=== PATIENT | male | born 1975 | race Hispanic/Latino ===

== ENCOUNTER → 2018-04-29 | Outpatient (CLI) | payer OTHER, MEDICARE ==
[~2018-04-29] MED LIST: GADODIAMIDE 10 MMOL/20 ML ML IV ONE; HYDR-4064 PO; KETO75CA11 PO; TIZA4CAP8 PO; TRAM50TA4 PO
== END | disposition home or self-care (01) ==
LOC: RAH 08:31
PROVIDERS: ATTEND Family Medicine
DX: M47.26 Other spondylosis with radiculopathy, lumbar region (principal); M48.061 Spinal stenosis, lumbar region without neurogenic claudication
CPT/HCPCS: 72158; A9579

== ENCOUNTER 2019-03-24 06:57 | Day surgery (SDC) | payer OTHER, MEDICARE ==
[2019-03-23 16:44] VITALS: BP 127/74
[2019-03-23 16:59] LABS: BASOPHILS % (AUTO) 1.1 % (0.0-5.0); EOSINOPHILS % (AUTO) 6.8 % (0.0-8.0); HEMATOCRIT 39.3 % (42-54); LYMPHOCYTES % (AUTO) 30.6 % (21.0-51.0); MEAN CORPUSCULAR HEMOGLOBIN 28.6 pg (27.0-33.0); MEAN CORPUSCULAR HGB CONC 33.2 g/dL (32.0-36.0); MEAN CORPUSCULAR VOLUME 86.1 fL (79-99); MONOCYTES % (AUTO) 8.5 % (3.0-13.0); PLATELET COUNT (AUTO) 306 K/uL (130-400); RED BLOOD CELL COUNT(AUTO) 4.57 MIL/uL (4.50-6.20); WHITE BLOOD COUNT (AUTO) 9.6 K/uL (4.8-10.8)
[2019-03-23 17:07] LABS: CREATININE 0.9 mg/dL (0.5-1.5); POTASSIUM 4.5 mmol/L (3.5-5.1)
[2019-03-24] VITALS (16 sets, daily range): BP systolic 123–146; BP diastolic 76–95
[~2019-03-24] VITALS: Ht 165.1 cm; Wt 93.7 kg
[~2019-03-24 06:57] MED LIST changes: +CETI10TA57 PO; +DICL50TA9 PO; +FLUT16H NASAL; +GABA-531 PO; -GADODIAMIDE 10 MMOL/20 ML ML IV ONE; -KETO75CA11 PO; -TIZA4CAP8 PO; +TIZA4TAB5 PO
[2019-03-24] MEDS: CEFAZOLIN SODIUM 1 GM VIAL IVP SCH ×2 (07:30→09:00)
[2019-03-24] MEDS ORDERED: LACTATED RINGERS 1000ML 1,000 ML IV ONE (07:44)
--- NOTE | 2019-03-24 07:45 | NUR ---
POTENTIAL FOR INFECTION: SHAVED LEFT SHOULDER /LT UPPER ARM PER ANGIE ANGELES, FOLLOWED BY WIPING WITH WILVER: 2% CHLORHEXIDINE GLUCONATE CLOTH PATIENTS PRE-OP SKIN PREP.
[2019-03-24] MEDS ORDERED: EPINEPHRINE 1 MG/ML 30ML VIAL IJ ONE (08:06)
[2019-03-24] MEDS ORDERED: MIDAZOLAM HCL 1 MG/ML 2ML VIAL ONE (08:36)
[2019-03-24] MEDS ORDERED: ONDANSETRON HCL 4 MG/2 ML VIAL ONE (08:36)
[2019-03-24] MEDS ORDERED: DEXAMETHASONE SOD PHOSPHATE 10MG/ML 1ML VIAL ONE (08:36)
[2019-03-24] MEDS ORDERED: LIDOCAINE PF 2% 5ML ABBOJECT ONE (08:36)
[2019-03-24] MEDS ORDERED: PROPOFOL 10 MG/ML 20ML VIAL IV ONE ×2 (08:36→11:30)
[2019-03-24] MEDS ORDERED: FENTANYL CITRATE PF 50 MCG/1 ML 2ML VIAL ONE (08:37)
[2019-03-24] MEDS ORDERED: ROCURONIUM 10MG/1ML SYR 10 MG/ML ML ONE ×2 (08:40→10:57)
[2019-03-24] MEDS ORDERED: ROPIVACAINE 0.5% 5MG/ML 30ML IJ ONE (08:45)
[2019-03-24] MEDS ORDERED: EPHEDRINE SULFATE 50 MG/ML AMPULE ONE (11:13)
[2019-03-24] MEDS ORDERED: GLYCOPYRROLATE 1 MG/5 ML SYRINGE ONE (12:02)
[2019-03-24] MEDS ORDERED: NEOSTIGMINE 5MG/5ML SYR IV ONE (12:02)
[2019-03-24] MEDS ORDERED: CEPH500B PO (12:03)
== END 2019-03-24 13:35 | disposition home or self-care (01) ==
LOC: DAH 06:57
PROVIDERS: ATTEND Orthopaedic Surgery
DX: M75.122 Complete rotator cuff tear or rupture of left shoulder, not specified as traumatic (principal); M19.012 Primary osteoarthritis, left shoulder; G89.29 Other chronic pain; E66.9 Obesity, unspecified; Z79.899 Other long term (current) drug therapy; Z98.890 Other specified postprocedural states
CPT/HCPCS: 29824; 29826; 29827; 36415; 64415; 80048; 85025; A4215; A4221; A4222; A4223; A4565; A4600; A4649 ×5; A4663; A4930; A5120; A6204; A6260; C1713 ×2; G0168; J0171; J0690; J1100; J2001; J2250; J2405; J2704 ×2; J2710; J2795; J3010; J3490 ×2; J7030; J7120

== ENCOUNTER → 2021-01-08 | Outpatient (CLI) | payer OTHER ==
[~2021-01-08] MED LIST changes: +CEPH500B PO
== END | disposition home or self-care (01) ==
LOC: RAH 08:07
PROVIDERS: ATTEND Family Medicine
DX: M48.061 Spinal stenosis, lumbar region without neurogenic claudication (principal); M47.816 Spondylosis without myelopathy or radiculopathy, lumbar region
CPT/HCPCS: 72148

== ENCOUNTER 2025-05-10 07:24 | Day surgery (SDC) | payer OTHER ==
[2025-05-06 11:46] LABS: IMMATURE GRANULOCYTE ABSOLUTE 0.12 K/uL (0-1); NUCLEATED RED BLOOD CELLS 0.0 % (0.0-0.19); PLATELET COUNT (AUTO) 346 K/uL (130-400); RED BLOOD CELL COUNT(AUTO) 4.71 MIL/uL (4.50-6.20); RED CELL DISTRIBUTION WIDTH 14.7 % (11.0-15.5); WHITE BLOOD COUNT (AUTO) 9.9 K/uL (4.8-10.8)
[2025-05-06 11:50] VITALS: BP 142/97; PULSE 71; RESP 16; TEMP 98.8
[2025-05-06 11:53] LABS: CREATININE 0.9 mg/dL (0.5-1.3); GLOMERULAR FILTR. RATE CALC 103.0 mL/min (>90); GLUCOSE,RANDOM 69.0 mg/dL (70-105); SODIUM SERUM 138.0 mmol/L (136-145); UREA NITROGEN, BLOOD 20.0 mg/dL (7-18)
[2025-05-10] VITALS (17 sets, daily range): BP systolic 138–196; BP diastolic 90–108; PULSE 63–110; RESP 15–19; TEMP 97.2–97.8
[~2025-05-10] VITALS: Ht 165.1 cm; Wt 88.5 kg
[~2025-05-10 07:24] MED LIST changes: -CEPH500B PO; -CETI10TA57 PO; -DICL50TA9 PO; -FLUT16H NASAL; -GABA-531 PO; -HYDR-4064 PO; +LACTATED RINGERS 1000ML 1,000 ML IV ONE; -TIZA4TAB5 PO; -TRAM50TA4 PO
[2025-05-10] MEDS ORDERED: LIDOCAINE PF 100MG/5ML (2%) SYRINGE 5ML ONE (07:35)
[2025-05-10] MEDS ORDERED: GLYCOPYRROLATE 0.2 MG/ML 5 ML VIAL ONE (07:36)
[2025-05-10] MEDS ORDERED: NEOSTIGMINE METHYLSULFATE 1MG/ML IV ONE (07:36)
[2025-05-10] MEDS ORDERED: SUCCINYLCHOLINE CHLORIDE 20 MG/ML 10 ML VIAL ONE (07:36)
[2025-05-10] MEDS ORDERED: MIDAZOLAM HCL 1 MG/ML 2ML VIAL ONE (07:38)
[2025-05-10] MEDS ORDERED: FAMOTIDINE 20MG VIAL IV ONE (07:52)
[2025-05-10] MEDS ORDERED: SUGAMMADEX SODIUM 200 MG/2 ML VIAL IV ONE (07:52)
--- NOTE | 2025-05-10 11:27 | OP ---
Operative Note: DATE OF PROCEDURE: 05/10/25 SURGEON: ANALI WHITLOCK MD MANAGER OF EXHIBITIONS AND COLLECTIONS: [Mathieu Clarke and Saad Oconnell, ROBBIN's] ANESTHESIA: [General anesthesia plus regional block] ANESTHESIOLOGIST/MERCHANT MARINER: [Rolando Zapata CRNA] PREOPERATIVE DIAGNOSIS: [Recurrent tear left shoulder rotator cuff] POSTOPERATIVE DIAGNOSIS: [Recurrent tear left shoulder rotator cuff supraspinatus and infraspinatus] IMPLANTS: [[employer] 5.5 peek anchors x3] PROCEDURE: [Left shoulder open rotator cuff tear repair supra and infraspinatus] ESTIMATED BLOOD LOSS: [Less than 20 mL] INDICATIONS: [The patient is a 50-year-old male with a history of a rotator cuff tear repair 7-8 years ago done arthroscopically. The patient did very well until a year ago when she sustained an injury to his shoulder again and developed acute pain followed by weakness and difficulty with range of motion. A follow-up MRI done recently showed the presence of a recurrent tear of the supraspinatus with retraction of the muscle. The patient is brought to the operating room for an open procedure to try to repair the tear. Procedure understood, risks, benefits and possible complications and agreed signed the consent form] DESCRIPTION OF PROCEDURE: [After adequate general anesthesia was achieved and regional block obtained the patient was placed in the beach chair position and the left upper extremity was prepped and draped in the usual manner. After identification of the bony landmarks we proceeded to make an incision in the anterolateral aspect of the acromion through the skin followed sharp dissection through the subcutaneous tissue until the deltoid fibers were identified and split longitudinally this fibers on top of the anterior acromium and elevated subperiosteally the anterior deltoid and extended the dissection along the deltoid distally entering into the subacromial space. The patient had a large and thick subacromial bursa which was excised, exposing the supraspinatus which showed a complete tear with a retraction of the muscle but we were able to rasp of the end and pull it back to its anatomic position. The tear extended to also the anterior portion of the infraspinatus which was also pulled into position with a any difficulty. We then proceeded to clean the edges of the tear and with the use of the rongeur clean the footprint of the attachment of the tendon and we then proceeded to apply with a horizontal mattress technique to suture tapes of the distal end of the supraspinatus and once this was achieved w e proceeded to pass the sutures to 5.5 peek anchors and these were inserted at the foot print of the rotator cuff insertion site previous pre tapping of the defect for each anchor. After the anchors were inserted they were tapped into the bone and then screwed until were very under the surface of the bone removing the it systems engineer obtain an adequate reduction of the rotator cuff supraspinatus tendon. Another suture tape was applied to the distal end of the anterior infraspinatus, sutures that were then threaded into another 5.5 peek anchor was inserted at the top of the greater tuberosity completing the repair. 1. Ethibond sutures were used to pass through the tendon and the bone to reinforce the repairs. Then we proceeded to decompress the acromion most proximal asked to with the use of an osteotome and a rasp to give room to the rotator cuff to move around without any impingement. After irrigation of the wound was completed we proceeded then to check the range of motion noticed it to be adequate and no impingement was present and we proceeded then to close the wound with approximation of the deltoid muscle fibers with #1 Ethibond suture and passing the sutures through the bone. The distal fibers of the deltoid fascia were closed with 1. Vicryl stitches. The subcutaneous tissue was then closed with 2-0 Monocryl inverted stitches and the skin was closed with 3-0 Monocryl subcuticularly. This was followed by application of Dermabond to seal the incisions and then it was covered with a small Telfa dressings and OpSite's. The drapes were then removed and the patient was placed in an arm sling. The bed was placed in the supine position and the patient was transferred to a stretcher and taken to recovery room for follow-up by anesthesia. There were no complications during the procedure.] ANALI WHITLOCK MD May 10, 2025 11:27
[2025-05-10] MEDS ORDERED: PROMETHAZINE HCL 25 MG/ML 1ML AMPULE IM PRN (12:00)
--- NOTE | 2025-05-10 12:20 | NUR ---
POST-OP SURGICAL SLING TO LEFT SHOULDER. STERILE GAUZE OVER SHOULDER WITH 4X4 TEGADERM. NO ACTIVE BLEEDING TO DRESSING. DRESSING CLEAN, DRY, AND INTACT. NO REDNESS OR SWELLING NOTED.
--- NOTE | 2025-05-10 12:30 | NUR ---
USING URINAL AT BEDSIDE. VOIDED 200CC YELLOW URINE.
== END 2025-05-10 12:52 | disposition home or self-care (01) ==
LOC: DAH 07:24
PROVIDERS: ATTEND Orthopaedic Surgery
DX: M75.122 Complete rotator cuff tear or rupture of left shoulder, not specified as traumatic (principal); Z82.3 Family history of stroke; Z83.3 Family history of diabetes mellitus; Z82.49 Family history of ischemic heart disease and other diseases of the circulatory system; Z79.899 Other long term (current) drug therapy; Z98.890 Other specified postprocedural states
CPT/HCPCS: 80048; 85025; 36415; 64415; 23412; A4223 ×2; A4600; A4663; J7120; J1308; J3010 ×2; J1100; J0330; J3490 ×3; J2003; J0360; J2250; J2704; J2405; J1885; J2710; J0690 ×2; A6204; A4649; A4930; C1713; A5120; A4215; A4213; A4222; A4221; A4216